=== PATIENT | male | born 1955 | race African-American/Black ===

== ENCOUNTER 2019-07-30 00:59 | Inpatient (IN) | payer MEDICARE, OTHER ==
[~2019-07-30] VITALS: Ht 182.9 cm; Wt 88.5 kg
[~2019-07-30 00:59] MED LIST: ARIP15TA3 PO; BUPR150T12 PO; CLON0.1T14 PO; CYCL-289 PO; HYDR1TAB PO; HYDR25TA4 PO; LISI-603 PO; MAGN355O3 PO; METF500T PO; OXYC30TA86 PO; TAMS0.4C34 PO; TEMA15CA PO; TOPI50TA PO; TRAZ300T2 PO
--- NOTE | 2019-07-30 01:04 | NUR ---
PT AAOX4. STATED AMBULATORY BUT USES A WHEEL CHAIR. BIBSELF C/O CHEST PAIN X4 DAYS BUT WAS POINTING AT HIS RIBS. PT PLACED ON MONITOR AND PULSE OX. VSS. NO ACUTE DISTRESS NOTED. SAT 96% ROOM AIR.
--- NOTE | 2019-07-30 01:18 | NUR ---
XRAY AT BEDSIDE
[2019-07-30] MEDS ORDERED: ALBUTEROL FS 2.5 MG/3 ML VIAL.NEB NEB ONE (01:30)
[2019-07-30] MEDS ORDERED: IPRATROPIUM NEB FS 0.5 MG/2.5 ML AMPUL.NEB NEB ONE (01:30)
--- NOTE | 2019-07-30 01:44 | NUR ---
SAND CASTER APPRENTICE AT BEDSIDE FOR LABS
[2019-07-30 01:54] LABS: BASOPHILS # (AUTO) 0.1 /CMM (0.0-0.2); EOSINOPHILS % (AUTO) 0.1 % (0.0-6.0); LYMPHOCYTES # (AUTO) 2.4 /CMM (0.8-4.8); LYMPHOCYTES % (AUTO) 28.9 % (20.0-44.0); MONOCYTES # (AUTO) 1.1 /CMM (0.1-1.30); NEUTROPHILS # (AUTO) 4.7 /CMM (1.8-8.9); WHITE BLOOD COUNT (AUTO) 8.3 K/uL (4.3-11.0)
[2019-07-30] MEDS ORDERED: ALBUTEROL FS 2.5 MG/3 ML VIAL.NEB ONE (01:56)
[2019-07-30] MEDS ORDERED: IPRATROPIUM NEB FS 0.5 MG/2.5 ML AMPUL.NEB ONE (01:56)
[2019-07-30 01:57] LABS: BASOPHILS % (AUTO) 1.2 % (0.0-2.0); HEMATOCRIT 38 % (39-51); HEMOGLOBIN 12.5 g/dL (13.5-17.5); MEAN CORPUSCULAR HGB CONC 33 g/dl (31.0-36.0); MEAN CORPUSCULAR VOLUME 94 fL (80-96); MONOCYTES % (AUTO) 13.6 % (2.0-12.0); NEUTROPHILS % (AUTO) 56.2 % (43.0-81.0); PLATELET COUNT (AUTO) 89 /CMM (150-450); RED BLOOD CELL COUNT(AUTO) 4.03 MIL/uL (4.5-6.0)
[2019-07-30 02:03] LABS: CALCIUM, SERUM 7.9 mg/dL (8.5-10.1); CREATININE 1.2 mg/dL (0.6-1.3); POTASSIUM 3.8 mmol/L (3.5-5.1)
[2019-07-30 02:14] LABS: ALBUMIN 3.1 g/dL (3.4-5.0); BILIRUBIN,DIRECT 0.3 mg/dL (0.0-0.2); BILIRUBIN,TOTAL 1.1 mg/dL (0.2-1.0); TOTAL PROTEIN, SERUM 6.6 g/dL (6.4-8.2)
[2019-07-30 02:16] LABS: ABG BASE EXCESS -0.5 mmol/L; ABG PCO2 32.2 mmHg (35.0-45.0); ABG PH 7.463 (7.350-7.450); ABG PO2 70.7 mmHg (75.0-100.0); AaDO2 40.5 mmHg; COHb 1.2 % (0.5-1.5); MetHb 0.3 % (0.0-1.5); O2Hb 92.6 % (94.0-97.0); SITE, ABG Right Radial; VENT MODE, BG room air
--- NOTE | 2019-07-30 02:43 | NUR ---
TORRI SENT TO LAB
[2019-07-30] MEDS ORDERED: ONDANSETRON HCL/PF 4 MG/2 ML VIAL IVP PRN (03:30)
[2019-07-30] MEDS ORDERED: DOCUSATE SODIUM 100 MG CAPSULE PO PRN (03:30)
[2019-07-30] MEDS ORDERED: FUROSEMIDE 40 MG/4 ML VIAL IV ONE (03:30)
[2019-07-30] MEDS ORDERED: NITROGLYCERIN 0.4 MG/TAB BOTTLE SL PRN (03:30)
[2019-07-30] MEDS ORDERED: ALBUTEROL FS 2.5 MG/0.5 ML VIAL.NEB HHN PRN (03:30)
[2019-07-30] MEDS ORDERED: IPRATROPIUM NEB FS 0.5 MG/2.5 ML AMPUL.NEB HHN PRN (03:30)
[2019-07-30] MEDS ORDERED: MAG HYDROX/AL HYDROX/SIMETH 30 ML UDC PO PRN ×2 (03:30→07:00)
[2019-07-30] MEDS ORDERED: ACETAMINOPHEN 325 MG TABLET PO PRN (03:30)
[2019-07-30] MEDS ORDERED: MORPHINE SULFATE INJ 2 MG/ML DISP.SYRIN IV PRN (03:30)
--- NOTE | 2019-07-30 03:31 | NUR ---
PT SAT 98% ON ROOM AIR. VSS. SLEEPING.
--- NOTE | 2019-07-30 03:37 | NUR ---
REPORT GIVEN TO THERESE FOR VLAD
--- NOTE | 2019-07-30 03:38 | NUR ---
RECEIVED REPORT FROM ER NURSE FOR VLAD.
[2019-07-30 03:44] LABS: LYMPHOCYTES % (MANUAL) 23 % (16-48); MONOCYTES % (MANUAL) 10 % (0-11.0); NEUTROPHILS % (MANUAL) 67 (42-76)
--- NOTE | 2019-07-30 03:59 | NUR ---
PT TRANSFERED PER ACLS PROTOCOL
[2019-07-30 04:18] LABS: C-REACTIVE PROTEIN 1.8 mg/dL (0.0-0.9)
[2019-07-30 04:30] VITALS: BP 128/67
--- NOTE | 2019-07-30 04:30 | NUR ---
AUDIT SENIOR ASSOCIATE NOTE PATIENT ARRIVED TO UNIT VIA ACLS PROTOCOL. PATIENT IS AN 63 YEAR OLD MALE ADMITTED WITH DX:CHEST PAIN,R/O ACS. PATIENT IS ALERT ORIENTED X4, COOPERATIVE AND VERBALLY RESPONSIVE TRINIDADIAN SPEAKING. BREATHING NORMAL NO SOB. NO C/O CHEST PAIN AT THIS TIME. ON RA SATURATING WELL AT 97%. NO FACIAL GRIMACING. VITAL SIGNS CHECKED. PLACED ON ELECTROLYTIC ETCHER. ST HR 108. PATIENT HAS LAC G#20 PATENT FLUSHING WELL. UPON ADMISSION SKIN ASSESSMENT DONE SKIN NOTED INTACT. PATIENT ORIENTED TO ROOM AND EQUIPMENT HOW TO USE CALL LIGHT,PATIENT VERBALIZED UNDERSTANDING. KEPT CLEAN AND COMFORTABLE. ALL SAFETY MEASURES IN PLACE, BED IN LOW AND LOCKED POSITION SIDE RAILS UPX2. CALL LIGHT WITHIN REACH. WILL CONT TO MONITOR.
--- NOTE | 2019-07-30 07:09 | NUR ---
ESTIMATOR PRINTING NOTES PATIENT RESTING WELL NO S/S OF DISTRESS NOTED. BREATHING NORMAL NO SOB NOTED PATIENT DENIES ANY PAIN OR DISCOMFORT. VITAL SIGNS WNL. IV'S INTACT PATENT FLUSHING WELL. ALL SAFETY MEASURES IN PLACE, CALL LIGHT WITHIN REACH. ENDORSE PATIENT TO AM NURSE FOR VLAD.
--- NOTE | 2019-07-30 07:30 | NUR ---
RN OPENING NOTES RECEIVED PATIENT IN STABLE CONDITION, RESTING IN BED. PATIENT IS A/O X4, RESTING IN BED. PATIENT IS ON ROOM AIR, SATURATING WELL, NO SIGNS AND SYMPTOMS OF RESPIRATORY DISTRESS NOTED. O2 SATURATION AT 96%. ON TELE MONITOR WITH SR/ST NOTED. IV ON LEFT AC #20, INTACT, PATENT AND FLUSHED WELL. PATIENT SAFETY MAINTAINED, CALL LIGHT WITHIN REACH, WILL CONTINUE TO MONITOR CLOSELY.
[2019-07-30 08:00] VITALS: BP 150/89
[2019-07-30] MEDS: METFORMIN 500 MG TABLET PO SCH (08:46)
[2019-07-30] MEDS: buPROPion SR 150 MG TABLET.ER PO SCH ×2 (08:46→20:21)
[2019-07-30] MEDS: AZITHROMYCIN 250 MG TABLET PO SCH (08:46)
[2019-07-30] MEDS: TOPIRAMATE 25 MG TABLET PO SCH ×2 (08:46→17:11)
[2019-07-30] MEDS: oxyCODONE HCL SR 10MG TAB.SR.12H PO SCH ×2 (08:48→20:22)
[2019-07-30] MEDS: LISINOPRIL (20MG) 20 MG TABLET PO SCH (08:48)
[2019-07-30] MEDS: CLONIDINE HCL 0.1 MG TABLET PO SCH (08:48)
[2019-07-30] MEDS: TAMSULOSIN 0.4 MG CAP.SR.24H PO SCH (08:48)
[2019-07-30] MEDS: CYCLOBENZAPRINE 10 MG TABLET PO SCH ×3 (08:49→17:11)
[2019-07-30] MEDS: HYDROCHLOROTHIAZIDE 25 MG TABLET PO SCH (08:49)
[2019-07-30] MEDS: ASPIRIN 325 MG TABLET PO SCH (08:50)
[2019-07-30 08:59] LABS: ALBUMIN 3.1 g/dL (3.4-5.0); BILIRUBIN,TOTAL 1.9 mg/dL (0.2-1.0); CALCIUM, SERUM 8.2 mg/dL (8.5-10.1); CREATININE 1.1 mg/dL (0.6-1.3); MAGNESIUM 1.6 mg/dL (1.8-2.4); PHOSPHORUS 3.5 mg/dL (2.5-4.9); POTASSIUM 3.7 mmol/L (3.5-5.1); TOTAL PROTEIN, SERUM 7.1 g/dL (6.4-8.2)
[2019-07-30] MEDS ORDERED: METOPROLOL TARTRATE 25 MG TABLET PO SCH (09:00)
[2019-07-30 10:01] LABS: THYROID STIMULATING HORMONE 3.045 uIU/mL (0.358-3.74)
[2019-07-30] MEDS ORDERED: ENOXAPARIN SODIUM 100 MG/ML DISP.SYRIN SQ SCH (10:30)
--- NOTE | 2019-07-30 10:52 | NUR ---
PENDING COVID-19 RESULT, SPOKE TO DR. HOLDEN CARLISLE TO AFTER THE RESULT.
[2019-07-30] MEDS: METOPROLOL TARTRATE 25 MG TABLET PO SCH ×2 (11:53→17:12)
[2019-07-30 12:00] VITALS: BP 102/57
[2019-07-30 16:00] VITALS: BP 100/57
--- NOTE | 2019-07-30 19:13 | NUR ---
RN CLOSING NOTES NO ACUTE CHANGES TO PATIENT CONDITION DURING MY SHIFT. REMAINED ON ISOLATION FOR R/O COVID. RESULTS PENDING. MIDLINE WAS INSERTED IN PREPARATION FOR CARDIAC ASSEMBLY MACHINE SET UP MECHANIC TOMORROW. PATIENT SAFETY WAS MAINTAINED, CALL LIGHT WITHIN REACH, ENDORSED TO PM NURSE FOR CONTINUITY OF CARE.
--- NOTE | 2019-07-30 19:30 | NUR ---
DIESEL TECHNICIAN NOTES RECEIVED PATIENT IN BED ALERT AWAKE ORIENTED X4. BREATHING NORMAL NO SOB NOTED RESPIRATION EVEN NON LABORED. ON RA SATURATING 98% AT THIS TIME. RT UPPER ARM PICC LINE PATENT INTACT FLUSHED WELL. PATIENT DENIES ANY PAIN OR DISCOMFORT. SKIN WARM AND DRY TO TOUCH. ALL SAFETY MEASURES IN PLACE, CALL LIGHT WITHIN REACH. WILL CONT TO MONITOR FOR VLAD.
[2019-07-30 20:00] VITALS: BP 98/50
[2019-07-30] MEDS: ARIPIPRAZOLE 5 MG TABLET PO SCH (21:11)
[2019-07-30] MEDS: SIMVASTATIN 20 MG TABLET PO SCH (21:11)
[2019-07-30] MEDS: TEMAZEPAM 15 MG CAPSULE PO SCH (21:11)
[2019-07-30 22:51] LABS: BASOPHILS # (AUTO) 0.1 /CMM (0.0-0.2); BASOPHILS % (AUTO) 1.4 % (0.0-2.0); EOSINOPHILS % (AUTO) 0.8 % (0.0-6.0); HEMATOCRIT 39 % (39-51); HEMOGLOBIN 12.4 g/dL (13.5-17.5); LYMPHOCYTES # (AUTO) 2.3 /CMM (0.8-4.8); LYMPHOCYTES % (AUTO) 28.9 % (20.0-44.0); MEAN CORPUSCULAR HGB CONC 32 g/dl (31.0-36.0); MEAN CORPUSCULAR VOLUME 95 fL (80-96); MONOCYTES # (AUTO) 1.2 /CMM (0.1-1.30); MONOCYTES % (AUTO) 15.5 % (2.0-12.0); NEUTROPHILS # (AUTO) 4.3 /CMM (1.8-8.9); NEUTROPHILS % (AUTO) 53.4 % (43.0-81.0); PLATELET COUNT (AUTO) 85 /CMM (150-450)
[2019-07-31] VITALS: BP 99/64
[2019-07-31] MEDS: METOPROLOL TARTRATE 25 MG TABLET PO SCH ×5 (00:14→23:58)
[2019-07-31 00:30] LABS: LYMPHOCYTES % (MANUAL) 23 % (16-48)
[2019-07-31 00:31] LABS: MONOCYTES % (MANUAL) 10 % (0-11.0); NEUTROPHILS % (MANUAL) 67 (42-76)
[2019-07-31 04:00] VITALS: BP 105/74
--- NOTE | 2019-07-31 06:50 | NUR ---
RN NOTES NO CHANGES NOTED DURING SHIFT. ON RA SATURATING WELL 98%. DENIES ANY PAIN OR DISCOMFORT. ALL NEEDS ATTENDED. KEPT CLEAN AND COMFORTABLE. ALL SAFETY MEASURES IN PLACE,BED IN LOW AND LOCKED POSITION. CALL LIGHT WITHIN REACH. WILL ENDORSE TO AM NURSE FOR VLAD.
[2019-07-31 08:00] VITALS: BP 90/60
--- NOTE | 2019-07-31 08:00 | NUR ---
THERESE OPENING RN NOTES RECEIVED PT IS SLEEPING IN BED .NO SOB NOTED. PATIENT IS NPO AFTER MIDNIGHT. ALL SAFETY MEASURES IN PLACE,BED IN LOW AND LOCKED POSITION. CALL LIGHT WITHIN REACH. WILL CONTINUE TO MONITOR
[2019-07-31] MEDS: METFORMIN 500 MG TABLET PO SCH (08:58)
[2019-07-31] MEDS: ASPIRIN 325 MG TABLET PO SCH (08:58)
[2019-07-31] MEDS: TAMSULOSIN 0.4 MG CAP.SR.24H PO SCH (08:58)
[2019-07-31] MEDS: TOPIRAMATE 25 MG TABLET PO SCH ×2 (08:58→17:26)
[2019-07-31] MEDS: buPROPion SR 150 MG TABLET.ER PO SCH ×2 (08:58→20:09)
[2019-07-31] MEDS: AZITHROMYCIN 250 MG TABLET PO SCH (08:58)
[2019-07-31] MEDS: CYCLOBENZAPRINE 10 MG TABLET PO SCH ×3 (08:58→17:26)
[2019-07-31] MEDS: CLONIDINE HCL 0.1 MG TABLET PO SCH (09:00)
[2019-07-31] MEDS: HYDROCHLOROTHIAZIDE 25 MG TABLET PO SCH (09:00)
[2019-07-31] MEDS: LISINOPRIL (20MG) 20 MG TABLET PO SCH (09:00)
--- NOTE | 2019-07-31 09:13 | NUR ---
THERESE RN NOTES HOLD ON THREE BLOOD PRESSURE MEDS DUE TO LOW BP 90/60
[2019-07-31] MEDS: oxyCODONE HCL SR 10MG TAB.SR.12H PO SCH ×2 (09:54→21:00)
[2019-07-31] MEDS: IV NS 0.9% 1,000 ML IV PRN ×2 (10:36→20:08)
[2019-07-31 12:00] VITALS: BP 96/56
--- NOTE | 2019-07-31 12:00 | NUR ---
THERESE RN NOTES HOLD ON THe BLOOD PRESSURE MEDS DUE TO LOW BP 96/56
[2019-07-31 13:44] LABS: BASOPHILS # (AUTO) 0.1 /CMM (0.0-0.2); BASOPHILS % (AUTO) 1.2 % (0.0-2.0); EOSINOPHILS % (AUTO) 0.9 % (0.0-6.0); HEMATOCRIT 39 % (39-51); HEMOGLOBIN 12.7 g/dL (13.5-17.5); LYMPHOCYTES # (AUTO) 1.9 /CMM (0.8-4.8); MEAN CORPUSCULAR HGB CONC 32 g/dl (31.0-36.0); MEAN CORPUSCULAR VOLUME 94 fL (80-96); MONOCYTES # (AUTO) 0.9 /CMM (0.1-1.30); MONOCYTES % (AUTO) 15.4 % (2.0-12.0); NEUTROPHILS % (AUTO) 50.5 % (43.0-81.0); PLATELET COUNT (AUTO) 68 /CMM (150-450); RED BLOOD CELL COUNT(AUTO) 4.18 MIL/uL (4.5-6.0); WHITE BLOOD COUNT (AUTO) 5.9 K/uL (4.3-11.0)
[2019-07-31 13:59] LABS: ALBUMIN 2.5 g/dL (3.4-5.0); BILIRUBIN,TOTAL 1.1 mg/dL (0.2-1.0); CALCIUM, SERUM 7.9 mg/dL (8.5-10.1); CREATININE 1.3 mg/dL (0.6-1.3); MAGNESIUM 1.8 mg/dL (1.8-2.4); POTASSIUM 3.9 mmol/L (3.5-5.1); TOTAL PROTEIN, SERUM 6.2 g/dL (6.4-8.2)
--- NOTE | 2019-07-31 14:54 | NUR ---
THIRD TROPONIN 0.[address] HATCH NOTIFIED NO NEW ORDERS.
[2019-07-31 16:00] VITALS: BP 101/54
--- NOTE | 2019-07-31 18:51 | NUR ---
RN CLOSING NOTES NO ACUTE CHANGES TO PATIENT CONDITION DURING MY SHIFT. REMAINED ON ISOLATION FOR R/O COVID. RESULTS PENDING. MIDLINE IS INTACT NS 125 ML/HR. PATIENT SAFETY WAS MAINTAINED, CALL LIGHT WITHIN REACH, WILL ENDORSED TO PM NURSE FOR CONTINUITY OF CARE.
--- NOTE | 2019-07-31 19:30 | NUR ---
OUTBOARD MOTOR MECHANIC OPENING NOTE RECEIVED PATIENT ON ISOLATION FOR R/O COVID. PATIENT IN BED. A/OX4. TOLERATING ROOM AIR. RESPIRATIONS ARE EVEN AND UNLABORED. WHEN MOVING THERE ARE PERIODS OF SOB. NO C/O PAIN AT THIS TIME. EXTERNAL TELE MONITOR READ SINUS TACHYCARDIA HR 105. IN NO APPARENT DISTRESS. IV ACCESS IN NABOR MIDLINE RUNNING NS@125ML/HR. BED IS LOW AND LOCKED, HOB ELEVATED IN SEMI FOWLERS, SIDE RIALS UP X2. CALL LIGHT WITHIN REACH. WILL CONTINUE TO MONITOR.
[2019-07-31 20:00] VITALS: BP 104/66
[2019-07-31] MEDS ORDERED: IPRATROPIUM/ALBUTEROL INHALER IH PRN (20:30)
--- NOTE | 2019-07-31 21:24 | NUR ---
MOTOR ROOM CONTROLLER NOTE ADMINISTERED PRN ALBUTEROL D/T PATIENT C/O SOB. WILL CONTINUE TO MONITOR.
[2019-07-31] MEDS: TEMAZEPAM 15 MG CAPSULE PO SCH (22:00)
[2019-07-31] MEDS: SIMVASTATIN 20 MG TABLET PO SCH ×2 (22:00→23:02)
[2019-07-31] MEDS: ARIPIPRAZOLE 5 MG TABLET PO SCH ×2 (22:00→23:03)
--- NOTE | 2019-07-31 23:10 | NUR ---
CELLOPHANE BATH MIXER NOTE PATIENT REFUSED 2200 ABILIFY, ZOCOR, AND RESTORIL. ZOCOR OPENED BUT NOT TAKEN. EXPLAINED RISKS AND BENEFITS TO PATIENT, STILL CONTINUES TO REFUSE. PLACED IN PHARMACEUTICAL WASTE BIN. ABILIFY RETURNED TO [employer] CELL. WILL CONTINUE TO MONITOR.
[2019-08-01] VITALS: BP 105/72
--- NOTE | 2019-08-01 00:33 | NUR ---
GOLD PLATER NOTE 0000 VITAL SIGNS SHOW PATIENT O2 AT 92% ON ROOM AIR. PLACED PATIENT BACK ON OXYGEN 2L/MIN VIA NASAL CANNULA. O2 SAT NOW 98%. WILL CONTINUE TO MONITOR.
[2019-08-01 04:00] VITALS: BP 104/61
[2019-08-01] MEDS: METOPROLOL TARTRATE 25 MG TABLET PO SCH ×3 (06:00→17:14)
[2019-08-01 06:43] LABS: BASOPHILS # (AUTO) 0.1 /CMM (0.0-0.2); EOSINOPHILS % (AUTO) 0.4 % (0.0-6.0); HEMATOCRIT 42 % (39-51); HEMOGLOBIN 13.3 g/dL (13.5-17.5); LYMPHOCYTES # (AUTO) 2.1 /CMM (0.8-4.8); LYMPHOCYTES % (AUTO) 29.6 % (20.0-44.0); MEAN CORPUSCULAR HGB CONC 32 g/dl (31.0-36.0); MEAN CORPUSCULAR VOLUME 97 fL (80-96); MONOCYTES # (AUTO) 0.9 /CMM (0.1-1.30); MONOCYTES % (AUTO) 12.5 % (2.0-12.0); NEUTROPHILS % (AUTO) 56.5 % (43.0-81.0); RED BLOOD CELL COUNT(AUTO) 4.31 MIL/uL (4.5-6.0); WHITE BLOOD COUNT (AUTO) 7.1 K/uL (4.3-11.0)
[2019-08-01 07:14] LABS: ALBUMIN 2.8 g/dL (3.4-5.0); BILIRUBIN,TOTAL 1.4 mg/dL (0.2-1.0); CALCIUM, SERUM 7.9 mg/dL (8.5-10.1); CREATININE 1.4 mg/dL (0.6-1.3); MAGNESIUM 1.7 mg/dL (1.8-2.4); PHOSPHORUS 4.4 mg/dL (2.5-4.9); POTASSIUM 4.4 mmol/L (3.5-5.1); TOTAL PROTEIN, SERUM 6.8 g/dL (6.4-8.2)
[2019-08-01 08:00] VITALS: BP 128/78
[2019-08-01] MEDS: LISINOPRIL (20MG) 20 MG TABLET PO SCH (08:55)
[2019-08-01] MEDS: ASPIRIN 325 MG TABLET PO SCH (08:55)
[2019-08-01] MEDS: oxyCODONE HCL SR 10MG TAB.SR.12H PO SCH ×2 (08:55→21:39)
[2019-08-01] MEDS: buPROPion SR 150 MG TABLET.ER PO SCH ×2 (08:55→21:39)
[2019-08-01] MEDS: HYDROCHLOROTHIAZIDE 25 MG TABLET PO SCH (08:55)
[2019-08-01] MEDS: METFORMIN 500 MG TABLET PO SCH (08:55)
[2019-08-01] MEDS: TAMSULOSIN 0.4 MG CAP.SR.24H PO SCH (08:57)
[2019-08-01] MEDS: AZITHROMYCIN 250 MG TABLET PO SCH (08:57)
[2019-08-01] MEDS: CLONIDINE HCL 0.1 MG TABLET PO SCH (08:57)
[2019-08-01] MEDS: TOPIRAMATE 25 MG TABLET PO SCH ×2 (08:57→17:14)
[2019-08-01] MEDS: CYCLOBENZAPRINE 10 MG TABLET PO SCH ×3 (08:57→17:14)
[2019-08-01] MEDS ORDERED: IV NS 0.9% 250 ML IV ONE (10:41)
[2019-08-01] MEDS ORDERED: IOHEXOL-350 100 ML VIAL IV ONE (10:41)
--- NOTE | 2019-08-01 11:01 | NUR ---
Patient picked up by radiology staff for CT angio heart. Awake , alert and oriented x 3, on room air at this time
[2019-08-01] MEDS ORDERED: NITROGLYCERIN 4.9 GM SPRAY ONE (11:03)
[2019-08-01] MEDS: METOPROLOL TARTRATE INJ 5 MG/5 ML AMPUL IVP PRN ×2 (11:15→11:20)
[2019-08-01] MEDS ORDERED: NITROGLYCERIN 0.4 MG/TAB BOTTLE SL ONE (11:30)
--- NOTE | 2019-08-01 11:31 | NUR ---
For CTA, after giving 10 mg of metoprolol, Patient become panick and agitated and wants to stop the test, unable to lie still; VS as follow: BP =87/49, HR 85, RR= 24, O2sat= 97%. Denies any chest pain. Recheck BP = 112/86, HR=85, O7dey=71. Unable to continue the test. Will inform primary nurse to inform Dr Andino for not finishing the test
[2019-08-01] MEDS ORDERED: NITROGLYCERIN 0.4 MG/TAB BOTTLE ONE (11:32)
[2019-08-01] MEDS ORDERED: METOPROLOL TARTRATE INJ 5 MG/5 ML AMPUL ONE (11:32)
--- NOTE | 2019-08-01 11:45 | NUR ---
Patient came back from radiology. Per radiology patient was not able to tolerate test due to anxiety. Patient VS are stable , on room air at this moment tolerating well.
[2019-08-01 12:00] VITALS: BP 118/76
[2019-08-01] MEDS: Magnesium 1GM/D5W 100ML PREMIX 100 ML IV SCH ×2 (12:14→13:32)
[2019-08-01 13:19] LABS: LYMPHOCYTES % (MANUAL) 30 % (16-48); MONOCYTES % (MANUAL) 14 % (0-11.0); NEUTROPHILS % (MANUAL) 56 (42-76)
[2019-08-01 14:22] LABS: PLATELET COUNT (AUTO) 74 /CMM (150-450)
[2019-08-01 16:00] VITALS: BP 130/82
--- NOTE | 2019-08-01 18:42 | NUR ---
Patient alert and oriented x3, resting in bed, on oxygen 2L via NC, saturating above 96%.On telemonitor SR 90's. All needs attended. COVID test pending.NABOR Midline intact and patent, fluid is runnins as ordered.will endorse to next shift for VLAD
--- NOTE | 2019-08-01 19:45 | NUR ---
RN OPENING NOTE RECEIVED PT IN BED RESTING COMFORTABLY. AOX3. PATIENT IN NO S/SX OF ACUTE DISTRESS AT THIS TIME. NO SOB NOTED. PATIENT'S BREATHING IS EVEN AND UNLABORED. PATIENT IS ON 2 L OF OXYGEN VIA NC; TOLERATING WELL. PATIENT ON TELE MONITOR READING SR, HR IS @94. ABLE TO CONSUME ABOUT 100% OF MEAL. NOTED IV SITE ON NABOR MIDLINE G20 WITH NS 1L RUNNING AT 125 ML/HR; PATENT AND FLUSHING WELL,NO S/S OF INFECTION OR INFILTRATION. PATIENT IS ABLE TO AMBULATE TO THE BATHROOM WITH MINIMAL ASSISTANCE. SAFETY MEASURES IMPLEMENTED PER PROTOCOL. PATIENT BED ALARM IS ON. HEAD OF BED ELEVATED. BED IS LOCKED, IN LOWEST POSITION AND SIDE RAILS UP. CALL LIGHT WITHIN REACH OF THE PATIENT. WILL CONTINUE TO MONITOR AND REASSESS FOR ANY CHANGES.
[2019-08-01 20:00] VITALS: BP 103/69
--- NOTE | 2019-08-01 20:30 | NUR ---
RN NOTE PATIENT GOES TO THE RESTROOM FREQUENTLY AND REFUSED TO RE-CONNECT IV FLUID AT THIS TIME. EXHIBIT CLEANER INFORMED.
--- NOTE | 2019-08-01 21:00 | NUR ---
PATIENT COMPLAINING OF 7/10 GENERALIZED PAIN. DUE MEDICATIONS GIVEN ORDERED.
[2019-08-01] MEDS: TEMAZEPAM 15 MG CAPSULE PO SCH (21:39)
[2019-08-01] MEDS: SIMVASTATIN 20 MG TABLET PO SCH (21:40)
[2019-08-01] MEDS: ARIPIPRAZOLE 5 MG TABLET PO SCH (21:40)
[2019-08-02] VITALS: BP 110/78
[2019-08-02] MEDS: METOPROLOL TARTRATE 25 MG TABLET PO SCH ×3 (01:34→13:23)
[2019-08-02 04:00] VITALS: BP 114/79
[2019-08-02] MEDS: IV NS 0.9% 1,000 ML IV PRN ×3 (04:14→04:26)
--- NOTE | 2019-08-02 06:48 | NUR ---
RN CLOSING NOTE PATIENT REMAINS IN ROOM. NO SIGNS OF RESPIRATORY DISTRESS. SAFETY MEASURES IMPLEMENTED, BED IN LOWEST POSITION, LOCKED, SIDE RAILS UP, CALL LIGHT WITHIN REACH. ALL NEEDS AND ORDERS ADDRESSED DURING THE SHIFT. ALL DUE MEDS GIVEN ORDERED & SCHEDULED ; PATIENT TOLERATED WELL.PATIENT KEPT CLEAN AND COMFORTABLE WITHIN THE SHIFT. ENDORSED TO INCOMING SHIFT RN FOR CONTINUITY OF CARE.
[2019-08-02] MEDS: FUROSEMIDE 40 MG/4 ML VIAL IV SCH ×2 (07:45→11:56)
[2019-08-02 08:00] VITALS: BP 106/73
[2019-08-02] MEDS: CLONIDINE HCL 0.1 MG TABLET PO SCH (08:58)
[2019-08-02] MEDS: CYCLOBENZAPRINE 10 MG TABLET PO SCH ×2 (08:58→13:29)
[2019-08-02] MEDS: LISINOPRIL (20MG) 20 MG TABLET PO SCH (08:58)
[2019-08-02] MEDS: buPROPion SR 150 MG TABLET.ER PO SCH (08:58)
[2019-08-02] MEDS: TOPIRAMATE 25 MG TABLET PO SCH (08:58)
[2019-08-02] MEDS: oxyCODONE HCL SR 10MG TAB.SR.12H PO SCH (08:59)
[2019-08-02] MEDS: ASPIRIN 325 MG TABLET PO SCH (08:59)
[2019-08-02] MEDS: TAMSULOSIN 0.4 MG CAP.SR.24H PO SCH (08:59)
[2019-08-02] MEDS: AZITHROMYCIN 250 MG TABLET PO SCH (09:00)
[2019-08-02] MEDS: METFORMIN 500 MG TABLET PO SCH (09:00)
[2019-08-02 12:00] VITALS: BP 100/69
--- NOTE | 2019-08-02 12:00 | NUR ---
RN OPENING NOTE GOT THIS PATIENT THIS MORNING. NO SIGNS OF RESPIRATORY DISTRESS. SAFETY MEASURES IMPLEMENTED, BED IN LOWEST POSITION, LOCKED, SIDE RAILS UP, CALL LIGHT WITHIN REACH. ALL DUE MEDS GIVEN ORDERED & SCHEDULED ; PATIENT TOLERATED WELL.PATIENT KEPT CLEAN AND COMFORTABLE WITHIN MY SHIFT.
[2019-08-02 13:23] VITALS: BP 100/69
--- NOTE | 2019-08-02 15:41 | NUR ---
THERESE RN NOTES PATIENT TALKED TO DECONTAMINATION TECHNICIAN AND DECONTAMINATION TECHNICIAN WANTED TO PUT HIM IN SKILLED FACILITY. PATIENT REFUSED. PATIENT SIGNED AMA. NURSE HELPED TO DRESS UP . PATIENT SAFETY LEFT THE BUILDING.
== END 2019-08-02 15:30 | disposition left against medical advice (07) | DRG 280 ==
LOC: ER 01:01 → TELE1 03:15
PROVIDERS: ADMIT Nurse Practitioner Acute Care; ATTEND Nurse Practitioner Acute Care
PROC: 05HA33Z Insertion of Infusion Device into Left Brachial Vein, Percutaneous Approach (ICD-10-PCS; principal; 2019-07-30)
DX: I21.4 Non-ST elevation (NSTEMI) myocardial infarction (principal); N17.0 Acute kidney failure with tubular necrosis; J44.1 Chronic obstructive pulmonary disease with (acute) exacerbation; J98.11 Atelectasis; I11.0 Hypertensive heart disease with heart failure; E83.42 Hypomagnesemia; F17.210 Nicotine dependence, cigarettes, uncomplicated; F31.9 Bipolar disorder, unspecified; E87.70 Fluid overload, unspecified; D69.6 Thrombocytopenia, unspecified; E11.9 Type 2 diabetes mellitus without complications; D64.9 Anemia, unspecified; I50.9 Heart failure, unspecified; Z96.651 Presence of right artificial knee joint; E80.6 Other disorders of bilirubin metabolism; Z98.890 Other specified postprocedural states; Z22.322 Carrier or suspected carrier of Methicillin resistant Staphylococcus aureus
CPT/HCPCS: 36410; 36415; 36600; 71045-TC; 80048-TC; 80053-TC; 80061-TC; 80076-TC; 82550-TC; 82728-TC; 82803-TC; 83615-TC; 83735-TC; 83880; 84100-TC; 84443-TC; 84484-TC; 85025-TC; 85378-TC; 85730-TC; 86140-TC; 87081-TC; 93307-TC; G0378; J1940; J3475; J3490; J7030; J7042; J7050; Q9967; U0003-CS